=== PATIENT | female | born 1985 ===

== ENCOUNTER 2022-02-08 22:28 | Inpatient (IN) ==
[2022-02-08] MEDS ORDERED: BETAMETH SOD PHOS/ACETATE IA 6 MG/ML IM STA (23:02)
[2022-02-08] MEDS ORDERED: LIDOCAINE 1% LOCAL 20 ML VIAL INFIL PRN (23:02)
[2022-02-08] MEDS ORDERED: LACTATED RINGER'S 1,000 ML IV PRN (23:02)
[2022-02-08] MEDS ORDERED: BETAMETH SOD PHOS/ACETATE IA 6 MG/ML ONE (23:19)
[2022-02-08 23:26] LABS: Hematocrit (blood only) 32.8 % (34.1-44.9); Hemoglobin 11.1 g/dl (12.0-16.0); Mean Corpuscular Hemoglobin 29.8 pg (25.0-34.0); Mean Corpuscular Hgb Conc 33.8 g/dL (32.0-36.0); Mean Corpuscular Volume 87.9 fL (80.0-100.0); Mean Platelet Volume 11.2 fL (9.4-12.3); Platelet Count 210 K/uL (130-400); RDW Coefficient of Variation 13.6 % (11.5-14.5); RDW Standard Deviation 43.8 fL (36.4-46.3); Red Blood Count 3.73 M/uL (3.93-5.22); White Blood Count 12.58 K/ul (4.8-10.8)
--- NOTE | 2022-02-08 23:26 | History & Physical Report ---
Date of Service February 08, 2022 Assessment & Plan (1) Vaginal bleeding during , antepartum: Plan: 36 yo at 23 wks with PPROM, VB, Breech presentation VSS Afebrile FHR ressuring Discussed the findings and risks of delivery Discussed transfer to tertiary care center where NICU would be available Understands the risks o delivering here vs transfer in helicopter, possible demise on the way Discussed poor prognosis of survival and risks of very premature fetus [facility], Betamethasone series, labs and transfer [place] [facility] Called transfer center and Dr Hernandez final inspection supervisor, accepting the patient Awaiting for helicopter Patient signed an informed consent. (2) premature rupture of membranes: (3) Labor presentation, breech: History of Present Illness Chief Complaint: VB, LOF Primary Care Provider: NO PCP Patient is a 36 yo at 23 wks who started to have VB and followed by LOF/ damián of clear fluid since 9:40 pm. She placed a pad and came to ER No abdominal pain, NO CTXS NOR CRAMPING + FM's Her has been uncomplicated except AMA, NIPT testing were low risk No recent trauma/ accident/ fall nor SI She has been working from home. Allergies Allergy/AdvReac Type Severity Reaction Status Date / Time No Known Allergies Allergy Verified 02/08/22 23:18 Physical Exam Constitutional: WD/WN, vitals as above well developed, well nourished and comfortable Not in pain nor discomfort Gastrointestinal (Abdomen): normal bowel sounds, soft, nontender, no hepatosplenomegaly (NT) Genitourinary: normal external appearance Speculum/Bimanual Exam: + vaginal bleeding (50 ML BLOOD Cleaned) Manual OB Exam: + cervical dilation 1 cm (1-2 cm, membranes seen), + cervical effacement 10% and + station high OB Exam Monitor Tracing: + external uterine monitor used, + category I (with some variable decels, improved afte IV fluids started) and + normal FHT variability bed side us, breech, placenta posterior, AFV low, FHR 150's
[2022-02-08 23:41] LABS: INR 0.9 (0.9-1.1); Partial Thromboplastin Ratio 0.9; Partial Thromboplastin Time 23.5 Seconds (21.0-31.0); Prothrombin Time 9.8 Seconds (9.0-12.0)
[2022-02-08] MEDS ORDERED: LACTATED RINGER'S 1,000 ML IV ONE (23:41)
[2022-02-08 23:44] LABS: Alanine Aminotransferase 25 U/L (7-52); Albumin Globulin Ratio 1.3 (0.9-2); Albumin Level 3.5 gm/dl (3.4-5.0); Alkaline Phosphatase 67 U/L (34-104); Anion Gap 7 (3-11); Aspartate Aminotransferase 23 U/L (13-39); BUN Creatinine Ratio 15.5 (10-20); Bilirubin,Total 0.2 mg/dl (0.2-1.0); Blood Urea Nitrogen 9 mg/dl (6-23); Calcium 8.9 mg/dl (8.5-10.1); Carbon Dioxide 24 mmol/L (21-32); Chloride 106 mmol/L (98-107); Est GFR (African American) 138.4 ml/min; Est GFR (Non-African American) 119.4 ml/min; Globulin 2.6 gm/dl (2.5-4.0); Glucose 98 mg/dl (70-99(Fasting)); Potassium 3.5 mmol/L (3.5-5.1); Sodium 137 mmol/L (136-145); Total Protein 6.1 gm/dl (6.0-8.3)
[2022-02-08 23:50] LABS: Fibrinogen 387 mg/dl (184-400)
[2022-02-09] MEDS ORDERED: SODIUM CHLORIDE 0.9% 250 ML IV PRN (00:28)
[2022-02-09] MEDS ORDERED: MAG SULFATE 4GM BOLUS FROM BAG IV ONE (00:34)
[2022-02-09] MEDS ORDERED: MAGNESIUM SULFATE 40GM / WTR 1,000 ML BAG IV ONE (00:37)
[2022-02-09] MEDS ORDERED: MAGNESIUM SULFATE / WTR 40 GM/1,000 ML BAG IV SCH (00:45)
--- NOTE | 2022-02-09 00:46 | Obstetrical Progress Note ---
Date of Service February 09, 2022 Assessment & Plan Admission and Anticipated Discharge Date Admission Date: February 08, 2022 Subjective Patient feels well, no complaints, has been awaiting for helicopter which could not leave due to turbulence in air Still no pain nor ctxs, no VB Labs are back and normal FHR was categ I but started to be tachycardic with variable decels Discussed with [employer] health education aide who recommended to try another way of transferring the patient since the survival rate is slim here Then we got a call from [facility] that they are sending their helikopter in 20 minutes Started on IV Magnesium for neuroprotection/ tocolysis Patient is aware of all above. Continue to monitor closely. Results & Data ([facility]) Vital Signs (Past 12 Hours) Vital Signs Temp Resp 02/08/22 23:26 37.0 C 18
--- NOTE | 2022-02-16 04:04 | Discharge Summary (DS) ---
DATE OF ADMISSION: 02/08/2022. DATE OF DISCHARGE: 02/09/2022. DETAILS OF ADMISSION: The patient is a 36-year-old G1, P0, at 23 weeks of gestation, who presented to labor and delivery on 02/08/2022 evening with vaginal bleeding, premature rupture of membranes and breech presentation. Her vital signs were stable, afebrile. heart rates were reassuring. On the pelvic exam, the patient was found to have ruptured membranes and active heavy bleeding and cervix was dilated and she was in labor. She was started on IV fluid bolus, Celestone series for lung maturation and labs for coags and plan to transfer to [facility] [address]. Her labs came back within normal limits including coagulation studies. K-B / maternal bleeding testing came negative. The [facility] [address] accepted her and they sent a helicopter. She was sent in helicopter in a stable condition for further care at the [facility] [address]. Job ID: [id number] CURT
== END 2022-02-09 01:25 | disposition short-term general hospital (02) | DRG 831 ==
LOC: OPB 22:28 → 4S1 22:48